=== PATIENT | female | born 2000 | race Caucasian/White ===

== ENCOUNTER 2023-03-23 19:44 | Emergency (ER) | payer OTHER, SELFPAY ==
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
[2023-03-23 19:50] VITALS: BP 126/83; PULSE 97; RESP 18; TEMP 36.9; O2SAT 100
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
[2023-03-23] MEDS: CYCLOBENZAPRINE HCL 10 MG TABLET PO (21:08)
[2023-03-23] MEDS: ACETAMINOPHEN 500 MG TABLET 1000 MG PO (21:08)
[2023-03-23 22:50] VITALS: BP 140/70; PULSE 80; RESP 14; O2SAT 97
== END 2023-03-23 22:50 | disposition home or self-care (01) ==
PROVIDERS: Emergency Provider Physician Assistant
DX: G44.319 Acute post-traumatic headache, not intractable (principal); S16.1XXA Strain of muscle, fascia and tendon at neck level, initial encounter; V47.0XXA Car driver injured in collision with fixed or stationary object in nontraffic accident, initial encounter
CPT/HCPCS: 70450; 72125; 81025; 99284; A9270